=== PATIENT | female | born 1945 | race Caucasian/White ===

== ENCOUNTER 2024-07-27 17:04 | Emergency (ER) | payer MEDICARE, OTHER, SELFPAY ==
[2024-07-27] VITALS (11 sets, daily range): BP systolic 153–194; BP diastolic 87–140; BMI 21.5
[2024-07-27 17:22] LABS: % Basophils 0.6 % (0-2); % Eosinophils 3.8 % (0-6); % Immature Granulocytes 0.4 % (0-0.5); % Monocytes 9.5 % (1.7-9.3); % Neutrophils 50.7 % (42.2-75.2); Absolute Eosinophils 0.3 10^3/uL (0-0.7); Absolute Lymphocytes 2.4 10^3/uL (1.2-3.4); Absolute Monocytes 0.7 10^3/uL (0.1-0.6); Absolute Neutrophils 3.5 10^3/uL (1.4-6.5); Hematocrit 40.3 % (37.0-47.0); Mean Corp Hgb Conc. 32.3 g/dL (33.0-37.0); Mean Corpuscular Hgb 30.6 pg (27.0-31.0); Mean Corpuscular Volume 94.8 fL (81.0-99.0); Mean Platelet Volume 10.8 fL (7.4-10.4); Nucleated Red Blood Cells % 0 %; Platelet Count 239 10^3/uL (130-400); Red Blood Cell Count 4.25 10^6/uL (4.20-5.40); Red Cell Dist. Width 14.6 % (11.5-14.5); White Blood Cell Count 6.8 10^3/uL (4.8-10.8)
--- NOTE | 2024-07-27 17:23 | ED.GENMED ---
History of Present Illness
General
Chief Complaint: Chest Pain
Source: patient
Time Seen by Provider: 07/27/24 17:08
History of Present Illness
History of Present Illness:
78-year-old female brought to the emergency room by ambulance from her detention where she complained of chest pain. Currently the patient denies chest pain. She does have dementia and does not recall why she is here. Patient's daughter is
here with her the patient does not have any history of coronary artery disease. She does have a history of A-fib for which she takes Coumadin.
Past History
Past History
ED Past Medical History: Arrthythmia (afib on Coumadin), HTN, Valvular disease and Other (Dementia)
ED Past Surgical History: Cardiac (MVR) and Cholecystectomy
Social History
Tobacco: Non-smoker
Living: assisted living
Phy Exam
Physical Exam
Physical Exam:
General: Awake, Alert, Oriented X3. No acute distress. Appears stated age
Vitals: unremarkable
Head: Atraumatic
Eyes: Pupils equal, EOMI
Throat: Airway intact, no exudates
Neck: Trachea midline
Lungs: Clear and equal b/l
Heart: Regular rate, no murmurs
Abd: Soft, Nontender, No pulsatile mass
Neuro: Nonfocal
Skin: Warm, dry, no rash
Extremities: pulses equal b/l, no edema
Course
Orders/Labs/Results
Orders:
Orders
07/27/24 17:12
Electrocardiogram (*1) Urgent
Reason for Study: Chest Pain
EKG- Treatment ONCE
07/27/24 17:14
Complete Blood Count/With Diff Urgent
Comprehensive Metabolic Panel Urgent
Troponin I Urgent
07/27/24 17:19
PT/INR [Prothrombin Time] Urgent
07/27/24 19:40
Troponin I Urgent
Abnormal Lab Results
07/27/24 07/27/24
17:14 17:19
MCHC 32.3 L g/dL
(33.0-37.0)
RDW 14.6 H %
(11.5-14.5)
MPV 10.8 H fL
(7.4-10.4)
Absolute Monos (auto) 0.7 H 10^3/uL
(0.1-0.6)
Monocytes % 9.5 H %
(1.7-9.3)
PT 35.9 H Sec
(11.4-14.6)
Carbon Dioxide 32 H mmol/L
(22-30)
07/27/24 17:14
07/27/24 17:14
Vital Signs
Initial and Last Documented VS:
Initial Vital Signs
Temp Pulse Resp Pulse Ox
98.4 F 74 16 97
07/27/24 17:08 07/27/24 17:08 07/27/24 17:08 07/27/24 17:08
Last Documented Vital Signs
Temp Pulse Resp BP Pulse Ox
98.4 F 71 16 177/100 97
07/27/24 17:08 07/27/24 19:00 07/27/24 19:00 07/27/24 19:00 07/27/24 18:57
*EKG
Interpreted by ED Provider?: Yes
Comparison EKG: no changes
Heart Rate: 74
Rate: normal
Rhythm: a-fib
[place]: normal axis
Interval: normal interval
QRS Pattern: normal QRS
Ischemia: non-specific ST changes
ED Attending Note
-
Portions of this chart may have been created with voice recognition software.� Occasional wrong word or��sound alike� substitutions may have occurred due to the inherent limitations of voice recognition software.
Discharge Plan
Departure
Condition: Good
Discharge Problem:
Chest pain
Instructions: Chest Pain NON-DHP Geneticist Follow Up
Prescriptions:
No Action
acetaminophen 500 mg Tablet
500 mg PO DAILY
methimazole 5 mg Tablet
5 mg PO MOWEFR
digoxin 125 mcg (0.125 mg) Tablet
125 mcg PO DAILY
valsartan 40 mg Tablet
120 mg PO DAILY
calcium carbonate-vitamin D3 [Calcium 600 + D(3)] 600 mg-10 mcg (400 unit) Tablet
1 tab PO BID
memantine 28 mg Capsule,Sprinkle,Er 24hr
28 mg PO QPM
buspirone 5 mg Tablet
5 mg PO BID
warfarin 3 mg Tablet
3 mg PO QPM
aspirin 81 mg Tablet,Chewable
81 mg PO DAILY
meclizine 12.5 mg Tablet
12.5 mg PO Q8HPRN PRN (Reason: vertigo) 60 Days Qty: 60 0RF
carvedilol [Coreg] 6.25 mg tablet
6.25 mg PO BID Qty: 180 0RF
Referrals:
Eli Miranda DO [Family Provider] -
Interventions
Interventions:
*Risk Screen - Suicide Last Done: 07/27/24 17:08
*General Assessment Last Done: 07/27/24 17:08
*Neglect/Abuse Screening Last Done: 07/27/24 17:08
*ED- Fall Risk Assessment Last Done: 07/27/24 17:08
ED- Cardiac Assessment Last Done: 07/27/24 17:08
Discharge Date and Time
Print Language: CHILEAN
[2024-07-27 17:37] LABS: INR 3.57; PT 35.9 Sec (11.4-14.6)
[2024-07-27 17:43] LABS: ALT (SGPT) 17 U/L (0-35); AST (SGOT) 25 U/L (14-36); Albumin 4.2 g/dl (3.5-5.0); Alkaline Phosphatase 75 U/L (38-126); Blood Urea Nitrogen 12 mg/dl (7-17); Calcium 9.5 mg/dl (8.4-10.2); Carbon Dioxide 32 mmol/L (22-30); Chloride 99 mmol/L (98-107); Estimated Creatinine Clearance 68 ml/min; Glucose 97 mg/dl (70-99); Potassium 3.8 mmol/L (3.5-5.1); Sodium 138 mmol/L (135-145); Total Protein 6.8 g/dl (6.3-8.2); eGFR > 60.00
[2024-07-27 17:48] LABS: Troponin I < 0.012 ng/ml
[2024-07-27 20:14] LABS: Troponin I < 0.012 ng/ml
== END 2024-07-27 21:03 | disposition home or self-care (01) ==
LOC: EMR 17:04
PROVIDERS: EMERGENCY PHYSICIAN Emergency Medicine; FAMILY PHYSICIAN Family Medicine
DX: R07.89 Other chest pain (principal); F03.90 Unspecified dementia, unspecified severity, without behavioral disturbance, psychotic disturbance, mood disturbance, and anxiety; I10 Essential (primary) hypertension; I48.91 Unspecified atrial fibrillation; Z79.01 Long term (current) use of anticoagulants; Z90.49 Acquired absence of other specified parts of digestive tract; I38 Endocarditis, valve unspecified
CPT/HCPCS: 99283; 80053; 84484; 85025; 85610; 93005

== ENCOUNTER 2024-09-23 23:38 | Inpatient (IN) | payer MEDICARE, OTHER, SELFPAY ==
[2024-09-23 18:22] VITALS: BP 142/81
[2024-09-23 18:42] LABS: % Basophils 0.5 % (0-2); % Eosinophils 2.6 % (0-6); % Immature Granulocytes 0.4 % (0-0.5); % Monocytes 8.9 % (1.7-9.3); % Neutrophils 55.6 % (42.2-75.2); Absolute Basophils 0.1 10^3/uL (0-0.2); Absolute Eosinophils 0.3 10^3/uL (0-0.7); Absolute Lymphocytes 3.2 10^3/uL (1.2-3.4); Absolute Monocytes 0.9 10^3/uL (0.1-0.6); Absolute Neutrophils 5.5 10^3/uL (1.4-6.5); Hematocrit 32.9 % (37.0-47.0); Hemoglobin 10.8 g/dL (12.0-16.0); Mean Corp Hgb Conc. 32.8 g/dL (33.0-37.0); Mean Corpuscular Hgb 30.3 pg (27.0-31.0); Mean Corpuscular Volume 92.2 fL (81.0-99.0); Nucleated Red Blood Cells % 0 %; Platelet Count 233 10^3/uL (130-400); Red Blood Cell Count 3.57 10^6/uL (4.20-5.40); Red Cell Dist. Width 14.6 % (11.5-14.5); White Blood Cell Count 9.9 10^3/uL (4.8-10.8)
[2024-09-23 18:53] LABS: INR 4.12; PT 39.4 Sec (11.4-14.6)
[2024-09-23 18:54] LABS: APTT 54.1 Sec (23.4-35.0)
[2024-09-23 19:10] LABS: ALT (SGPT) 15 U/L (0-35); AST (SGOT) 23 U/L (14-36); Albumin 3.7 g/dl (3.5-5.0); Alkaline Phosphatase 58 U/L (38-126); Blood Urea Nitrogen 23 mg/dl (7-17); Calcium 9.2 mg/dl (8.4-10.2); Carbon Dioxide 29 mmol/L (22-30); Chloride 100 mmol/L (98-107); Glucose 98 mg/dl (70-99); Potassium 3.8 mmol/L (3.5-5.1); Sodium 136 mmol/L (135-145); Total Bilirubin 0.9 mg/dl (0.2-1.3); Total Protein 6.1 g/dl (6.3-8.2); eGFR > 60.00
[2024-09-23 22:00] VITALS: BP 152/83
[2024-09-23] MEDS: PROTONIX IV 80 MG IV (23:00)
--- NOTE | 2024-09-23 23:01 | ED.GENMED ---
History of Present Illness
General
Chief Complaint: Rectal Bleeding
Source: patient
Exam Limitations: none
Time Seen by Provider: 09/23/24 21:12
History of Present Illness
History of Present Illness:
78-year-old female on Coumadin for A-fib presents with onset of rectal bleeding today at facility. Patient has history of dementia and history is limited. She notes mild abdominal pain. There was no reported vomiting or fever. There is family
history of colon CA.
Past History
Past History
ED Past Medical History: Arrthythmia (afib on Coumadin), HTN, Valvular disease and Other (Dementia)
ED Past Surgical History: Cardiac (MVR) and Cholecystectomy
Social History
Tobacco: Non-smoker
Living: assisted living
Phy Exam
Physical Exam
Physical Exam:
General: Well-appearing female no acute respiratory distress HEENT: Normocephalic atraumatic
Heart: Regular rate and rhythm
Lungs: Clear no wheeze
Abdomen slightly tender to lower abdomen and mildly distended. No guarding or rebound
Rectal exam: No obvious hemorrhoids. Dark red stool on tip of glove heme positive
Course
Orders/Labs/Results
Orders:
Orders
09/23/24 18:25
EKG [Electrocardiogram (*1)] Urgent
Reason for Study: Other
Other Reason for Exam: gi bleed
09/23/24 18:26
EKG- Treatment ONCE
09/23/24 18:35
Type+Screen Urgent
Complete Blood Count/With Diff Urgent
Comprehensive Metabolic Panel Urgent
PTT Urgent
Prothrombin Time Urgent
09/23/24 21:19
ABO2 Urgent
BBK Wristband Number:
Associate notified that ABO2 has been ordered: [id number]
Date: 09/23/24
Time: 18:50
Straight Ruling Machine Operator ID: [id number]
09/23/24 22:14
CT Abd/pelvis W Iv Cont Urgent
Comment:
Reason For Exam: abdominal pain
09/23/24 22:48
Pantoprazole [Protonix IV] 80 mg IV NOW STA
Abnormal Lab Results
09/23/24
18:35
RBC 3.57 L 10^6/uL
(4.20-5.40)
Hgb 10.8 L g/dL
(12.0-16.0)
Hct 32.9 L %
(37.0-47.0)
MCHC 32.8 L g/dL
(33.0-37.0)
RDW 14.6 H %
(11.5-14.5)
MPV 11.0 H fL
(7.4-10.4)
Absolute Monos (auto) 0.9 H 10^3/uL
(0.1-0.6)
PT 39.4 H Sec
(11.4-14.6)
APTT 54.1 H Sec
(23.4-35.0)
BUN 23 H mg/dl
(7-17)
Total Protein 6.1 L g/dl
(6.3-8.2)
09/23/24 18:35
09/23/24 18:35
Vital Signs
Initial and Last Documented VS:
Initial Vital Signs
Temp Pulse Resp BP Pulse Ox
98.5 F 84 16 142/81 98
09/23/24 18:22 09/23/24 18:22 09/23/24 18:22 09/23/24 18:22 09/23/24 18:22
Last Documented Vital Signs
Temp Pulse Resp BP Pulse Ox
98.5 F 87 21 152/83 98
09/23/24 18:22 09/23/24 22:48 09/23/24 22:48 09/23/24 22:00 09/23/24 22:00
MDM/Problems Addressed
Differential Diagnosis Includes:
Patient had episode of red rectal bleeding at facility today she had an episode here that was dark red. Stool is dark red on exam here with heme positive. She is slightly supratherapeutic with her Coumadin at 4.1. Vitals are stable. CT without
obvious acute finding. Protonix ordered for potential upper GI bleeding. Will admit to hospital
*Critical Care Note
Total Time (30-74mins, 75-104mins- exclusive of procedures): Not Applicable
ED Attending Note
-
Portions of this chart may have been created with voice recognition software.� Occasional wrong word or��sound alike� substitutions may have occurred due to the inherent limitations of voice recognition software.
Discharge Plan
Departure
Patient Disposition: Admit
Date of Disposition: 09/23/24
Time of Disposition: 23:04
Presentation/result/management discussed w/ accepting MD/DO: Hospitalist
Discharge Problem:
GI bleed
Prescriptions:
No Action
acetaminophen 500 mg Tablet
500 mg PO DAILY
methimazole 5 mg Tablet
5 mg PO MOWEFR
digoxin 125 mcg (0.125 mg) Tablet
125 mcg PO DAILY
valsartan 40 mg Tablet
120 mg PO DAILY
calcium carbonate-vitamin D3 [Calcium 600 + D(3)] 600 mg-10 mcg (400 unit) Tablet
1 tab PO BID
memantine 28 mg Capsule,Sprinkle,Er 24hr
28 mg PO QPM
buspirone 5 mg Tablet
5 mg PO BID
warfarin 3 mg Tablet
3 mg PO QPM
aspirin 81 mg Tablet,Chewable
81 mg PO DAILY
meclizine 12.5 mg Tablet
12.5 mg PO Q8HPRN PRN (Reason: vertigo) 60 Days Qty: 60 0RF
carvedilol [Coreg] 6.25 mg tablet
6.25 mg PO BID Qty: 180 0RF
Referrals:
Eli Miranda DO [Family Provider] -
Interventions
Interventions:
*Risk Screen - Suicide Last Done: 09/23/24 18:22
*General Assessment Last Done: 09/23/24 20:59
*Neglect/Abuse Screening Last Done: 09/23/24 18:22
*ED- Fall Risk Assessment Last Done: 09/23/24 18:22
*ED COVID-19 Vaccine History Last Done: 09/23/24 20:59
LW-Lbhhir-Afggkcsvuc Assessment Last Done: 09/23/24 22:05
ED- Cardiac Assessment Last Done: 09/23/24 21:00
ED- Pulmonary Assessment Last Done: 09/23/24 21:00
Discharge Date and Time
Print Language: YORUBA
--- NOTE | 2024-09-23 23:51 | HPS.HSE ---
Family Physician
-
Family Physician: Eli Miranda
Chief Complaint
-
BRBPR
History of Present Illness
Patient is a 78y F with PMH significant for dementia, hypertension and A-Fib on Coumadin who presents to ED complaining of BRBPR. History obtained from patient and her daughter at the bedside. Patient noted blood in the stool earlier today and
notified staff at the personal care facility. She was transported to the ED for further evaluation. She had a maroon-colored BM here in the ED and stool tested heme positive. She complains of abdominal distention / bloating and mild lower
abdominal pain. No N/V. No fevers / chills.
Patient has known history of diverticular disease. No prior history of significant GI bleeding episodes.
She is on Coumadin for A-Fib and did take her dose this evening prior to presentation.
Medical History
Past Medical History
Past Medical History: Reports Other
Additional Past Medical History:
Paroxysmal Atrial fibrillation
Essential Hypertension
Anxiety
Dementia
Hyperthyroidism
Past Surgical History: Reports Other
Additional Past Surgical History:
Bioprosthetic Mitral Valve Replacement
Cholecystectomy
Social History
Tobacco: Non-smoker
Alcohol: None
Living: Assisted Living
Family History
Family History: Other (Family history of colon cancer.)
Allergies / Home Medications
Allergies reflects when Allergies were last updated in [facility].
Home Medications with original date entered in [facility]
Allergy/Medication List:
Allergies
Allergy/AdvReac Type Severity Reaction Status Date / Time
amoxicillin Allergy Nausea / Verified 09/23/24 18:21
Vomiting
Androgenic Anabolic Steroid Allergy Unknown Verified 09/23/24 18:21
Home Medications
acetaminophen 500 mg tablet 500 mg PO BID Pain 01/23/22
calcium 600 mg (as carbonate)-vitamin D3 10 mcg (400 unit) tablet (Calcium 600 + D(3)) 1 tab PO BID Supplement 01/23/22
digoxin 125 mcg (0.125 mg) tablet 125 mcg PO DAILY Arrhythmia 01/23/22
methimazole 5 mg tablet 5 mg PO MOWEFR Thyroid 01/23/22
aspirin 81 mg chewable tablet 81 mg PO DAILY Blood clot prevention/tx 09/15/22
buspirone 5 mg tablet 10 mg PO TID Mental Health/Anxiety 09/15/22
carvedilol 6.25 mg tablet (Coreg) 6.25 mg PO BID #180 tabs 09/18/22
meclizine 12.5 mg tablet 12.5 mg PO Q8HPRN PRN vertigo 60 days #60 tabs 09/18/22
valsartan 160 mg tablet 160 mg PO DAILY 09/23/24
valsartan 80 mg tablet 80 mg PO DAILY 09/23/24
warfarin 4 mg tablet 4 mg PO DAILY@1700 09/23/24
Review of Systems
-
History Source: Patient and Family
A 12 point ROS was completed and negative except as noted: Yes
Constitutional: Denies Fever or Chills
Respiratory: Denies Cough or Trouble Breathing
Cardiac: Denies Chest Pain or Palpitations
Abdomen/GI: Reports Abdominal Pain and Bloody Stools; Denies Nausea, Vomiting or Diarrhea
: Denies Dysuria or Frequency
Musculoskeletal: Denies Joint Pain or Edema
Neurological: Denies Dizzy or Headache
Psych: Reports Dementia; Denies Depression or Anxiety
Physical Exam
Vital Signs
Vital Signs
Temp Pulse Resp BP Pulse Ox
98.5 F 87 21 152/83 98
09/23/24 18:22 09/23/24 22:48 09/23/24 22:48 09/23/24 22:00 09/23/24 22:00
Physical Exam
General: Other (78y F in no acute distress.)
HEENT: Moist mucous membranes and PERRLA
Respiratory: Clear; No Wheezes, Rales or Rhonchi
Cardiac: S1/S2 and Irregular Rhythm; No Murmur
GI: Other (Softly distended. pos BS. Lower abdominal tenderness without rebound / guarding.)
Musculoskeletal: No Clubbing, No Cyanosis and No Edema
Neuro: Awake and Alert; No Oriented
Laboratory Results
-
09/23/24 18:35
09/23/24 18:35
Laboratory Results
PT 39.4 Sec (11.4-14.6) H 09/23/24 18:35
INR 4.12 09/23/24 18:35
APTT 54.1 Sec (23.4-35.0) H 09/23/24 18:35
Total Bilirubin 0.9 mg/dl (0.2-1.3) 09/23/24 18:35
AST 23 U/L (14-36) 09/23/24 18:35
ALT 15 U/L (0-35) 09/23/24 18:35
Alkaline Phosphatase 58 U/L (38-126) 09/23/24 18:35
Impression/Plan
-
A/P: Patient is a 78y F with PMH significant for dementia, hypertension and A-Fib on Coumadin who presents to ED for evaluation of BRBPR.
Lower GI Bleeding
Acute Blood Loss Anemia secondary to the above
Coumadin Coagulopathy
- Admit for further evaluation and treatment.
- INR today is 4.12 and patient did have her dose of Coumadin this evening.
- Hgb = 10.8 compared to baseline of 12-13.
- Follow H&H and transfuse if needed (consent on chart).
- CT scan done in the ED today shows diverticular disease - no other significant bowel abnormality.
- GI evaluation for additional recommendations.
- Follow for any recurrent BRBPR, changes in BP, etc.
Paroxysmal Atrial Fibrillation
- Stable. Continue digoxin and carvedilol for rate control.
- Hold Eliquis acutely given active bleeding.
Benign Hypertension
- Stable. Continue valsartan at decreased dose with holding parameters.
- Monitor for any development of hypotension, etc secondary to bleeding / volume losses.
Hyperthyroidism
- Continue methimazole.
Senile Dementia
- Stable. Baseline dementia according to family.
- Follow for any agitation / delirium during acute stay.
DVT Prophylaxis: SCDs
Code Status: Full
[2024-09-24 02:15] VITALS: BP 170/108; BMI 22.7
[2024-09-24 02:20] LABS: Hematocrit 33.2 % (37.0-47.0); Hemoglobin 11.1 g/dL (12.0-16.0)
[2024-09-24 03:04] VITALS: BP 145/78
[2024-09-24 07:00] VITALS: BP 163/93
[2024-09-24] MEDS: BUSPAR 10 MG PO ×3 (09:11→20:35)
[2024-09-24] MEDS: COREG 6.25 MG PO ×2 (09:12→20:36)
[2024-09-24] MEDS: NSS (PRESERVATIVE FREE) 10 ML IV (09:13)
[2024-09-24] MEDS: LANOXIN 125 MCG PO (09:13)
[2024-09-24] MEDS: DIOVAN 160 MG PO (09:13)
[2024-09-24] MEDS: PROTONIX IV 40 MG IV (09:14)
[2024-09-24] MEDS: TAPAZOLE PO (09:14)
[2024-09-24] MEDS: TYLENOL 500 MG PO ×2 (09:15→20:36)
--- NOTE | 2024-09-24 09:31 | W.PN.HOSP.TC ---
Today's Communication/Plan
-
see bold
Assessment / Plan
Assessment / Plan
78y F with PMH significant for dementia, hypertension and A-Fib on Coumadin who presents to ED for evaluation of BRBPR.
Does not offer any acute complaints.
Gen: NAD, Awake and alert
Eyes: EOMI, PERRLA, no scleral icterus.
Neck: supple.
CV: RRR, +S1/S2, no m/r/g.
Resp: CTAB, no rales, wheezes, or rhonchi.
Abd: +BS, soft, NT, ND
Skin: No rashes.
Neuro: CN 2-12 intact, non-focal.
Psych: Normal mood and affect.
CT A/P: Evaluation for active colonic bleeding markedly limited without angiographic technique. Evaluation of the intestinal tract markedly limited without oral contrast and with relative paucity of intra-abdominal/pelvic fat with diverticulosis of
descending and redundant sigmoid colon. No intestinal obstruction or free air. Suspected 3 cm cystic lesion of the body/tail of the pancreas, additional approximate 1.2 cm pancreatic body cystic lesion and adjacent subcentimeter solid pancreatic
body lesion versus peripancreatic lymph node. Cystic lesions could represent PNET lesions. OTHER MALIGNANCY CANNOT BE EXCLUDED. RECOMMEND elective MRI for more complete evaluation if not recently obtained at outside facility. Prior cholecystectomy.
Cardiomegaly, heart incompletely included on this study.
Acute Blood Loss Anemia due to acute LGIB:
-exacerbated by coumadin coagulopathy
-trend Hb/INR (AM labs pending)
-c/s GI
-NPO
-start NS @ 80cc/hr
Pancreatic lesions:
-check MRI abd w/contrast
Other problems:
Paroxysmal Atrial Fibrillation: cont Dig/Coreg. Coumadin on hold with GIB.
Essential Hypertension: cont Coreg/Valsartan
Hyperthyroidism: cont methimazole
Alzheimer's Dementia
FULL/SCDs
Anticipated Discharge: 24 - 48 hours
Subjective/Interval History
-
Date of Service: September 24, 2024
Objective Data
-
Labs:
Laboratory Results
09/24/24 09/24/24 09/24/24
02:12 06:00 09:37
WBC Pending
Hgb 11.1 L Pending Pending
Hct 33.2 L Pending Pending
Plt Count Pending
PT Pending
INR Pending
Sodium Pending
Potassium Pending
Chloride Pending
Carbon Dioxide Pending
BUN Pending
Creatinine Pending
Glucose Pending
Calcium Pending
09/24/24
17:37
WBC
Hgb Pending
Hct Pending
Plt Count
PT
INR
Sodium
Potassium
Chloride
Carbon Dioxide
BUN
Creatinine
Glucose
Calcium
Vital Signs:
Vital Signs
Temp Pulse Resp BP Pulse Ox
98.2 F 84 14 145/78 98
09/24/24 03:04 09/24/24 09:13 09/24/24 03:04 09/24/24 03:04 09/24/24 03:04
[2024-09-24 10:50] LABS: Hematocrit 27.6 % (37.0-47.0); Hemoglobin 9.3 g/dL (12.0-16.0); Mean Corp Hgb Conc. 33.7 g/dL (33.0-37.0); Mean Corpuscular Hgb 30.2 pg (27.0-31.0); Mean Corpuscular Volume 89.6 fL (81.0-99.0); Mean Platelet Volume 11.1 fL (7.4-10.4); Platelet Count 199 10^3/uL (130-400); Red Blood Cell Count 3.08 10^6/uL (4.20-5.40); Red Cell Dist. Width 14.6 % (11.5-14.5); White Blood Cell Count 7.9 10^3/uL (4.8-10.8)
[2024-09-24 11:07] LABS: PT 42.2 Sec (11.4-14.6)
[2024-09-24] MEDS: NSS 1000 IV ×2 (11:15→23:21)
[2024-09-24 11:25] LABS: Blood Urea Nitrogen 20 mg/dl (7-17); Calcium 8.7 mg/dl (8.4-10.2); Carbon Dioxide 29 mmol/L (22-30); Chloride 105 mmol/L (98-107); Estimated Creatinine Clearance 62 ml/min; Glucose 96 mg/dl (70-99); Potassium 3.7 mmol/L (3.5-5.1); Sodium 140 mmol/L (135-145); eGFR > 60.00
--- NOTE | 2024-09-24 12:09 | CON.GI ---
Addendum entered and electronically signed by Rosa Whitlock DO 09/24/24 16:44:
Patient seen and examined independently of [facility]. I agree with her note with my additions below
Aida Em is a 78-year-old female with history of atrial fibrillation and a mitral valve ring on warfarin with a mechanical ring with a supratherapeutic INR of 4.5 who comes in with painless hematochezia. She is a very poor historian and is
pleasantly demented and somewhat scared to be here.
Apparently had a large episode of maroon stool at home and has had 2 further episodes here in the hospital. Patient has a normal baseline hemoglobin at 13 prior to coming in and most recent hemoglobin at 1030 was 9.3.
Her last colonoscopy was outside of [place] roughly 5 years ago per her daughter and has had small polyps removed in the past and an episode of diverticulitis years ago.
Most recent vital signs are stable. No tenderness on exam. Patient is pale.
# Hematochezia -painless and currently hemodynamically stable -highly likely diverticular bleeding
Supratherapeutic INR on warfarin with goal of 2.5-3.5 with a mechanical ring
Hospitalist is helping determine if we can reverse
Patient had a CT scan but not an angiogram so this is very limited and cannot determine if there is any active bleeding
Rechecking hemoglobin now to determine if she needs a transfusion
Placed on telemetry, low threshold for IMU
Discussed with cross coverage
Bedrest
Discussed with her daughter Bib Gayle who is an RN in the [employer]
# Pancreatic cyst -I canceled the MRI in the setting of active hematochezia
I discussed with the daughter currently we will hold off on any further workup in the setting of her significant dementia and active bleeding
Potential MRI later and can be done as outpatient
Original Note:
Consultation
-
Date/Time Consultation Requested: 09/24/24 0177
Date/Time Consultation Performed: 09/24/24 1150
Requesting Provider: Dr Foreman
Performing Provider: Dr Whitlock / Wendi Alvarez PA-C
Reason for Consultation: rectal bleeding
Medical History
Chief Complaint / HPI
Chief Complaint: rectal bleeding
History of Present Illness:
This is a 78 year old female with a past medical history of atrial fibrillation (on Coumadin), HTN and dementia, admitted for rectal bleeding which occurred yesterday at the assisted living facility where she resides. Patient is somewhat of a poor
historian due to dementia and unable to reach patient's daughter by phone despite multiple attempts. Per ER records, she had a maroon-colored bowel movement while in the ER and was complaining of bloating and mild lower abdominal discomfort. She has
had no associated fever, chills, nausea, vomiting or diarrhea. Unknown if she ever had a colonoscopy. CT scan of the abdomen/pelvis was done without oral contrast (and not CT angriogram) so limited evaluation for active bleeding, but does show
marked diverticulosis of the descending and redundant sigmoid colon. Also noted, incidentally, are pancreatic lesions described as a 3cm cystic lesion in the body/tail with questionable thin internal septations, as well as a 1.2cm cystic lesion of
the pancreatic body with adjacent subcentimeter solid lesion vs peripancreatic lymph node. Labs upon arrival in the ER with Hgb of 10.8, 9.3 today, with normocytic indices. PT 42.2, INR 4.5. BUN 20, creatinine 0.6. Last dose of Coumadin, 09/23/24 in
the evening.
Past Medical History
Past Medical History: Other (atrial fibrillation (on Coumadin), HTN and dementia)
Past Surgical History: Cholecystectomy and Other (mitral valve replacement)
Social History
Tobacco: Non-Smoker
Alcohol: None
Living: Assisted Living
Family History
Family History: Other (per medical record, +family history of colon cancer)
Allergies / Home Medications
Allergy/AdvReac Type Severity Reaction Status Date / Time
amoxicillin Allergy Nausea / Verified 09/23/24 18:21
Vomiting
Androgenic Anabolic Steroid Allergy Unknown Verified 09/23/24 18:21
�Medication �Instructions �Recorded
acetaminophen 500 mg tablet 500 mg PO BID Pain 01/23/22
calcium 600 mg (as 1 tab PO BID Supplement 01/23/22
carbonate)-vitamin D3 10 mcg (400
unit) tablet (Calcium 600 + D(3))
digoxin 125 mcg (0.125 mg) tablet 125 mcg PO DAILY Arrhythmia 01/23/22
methimazole 5 mg tablet 5 mg PO MOWEFR Thyroid 01/23/22
aspirin 81 mg chewable tablet 81 mg PO DAILY Blood clot 09/15/22
prevention/tx
buspirone 5 mg tablet 10 mg PO TID Mental Health/Anxiety 09/15/22
carvedilol 6.25 mg tablet (Coreg) 6.25 mg PO BID #180 tabs 09/18/22
meclizine 12.5 mg tablet 12.5 mg PO Q8HPRN PRN vertigo 60 09/18/22
days #60 tabs
valsartan 160 mg tablet 160 mg PO DAILY 09/23/24
valsartan 80 mg tablet 80 mg PO DAILY 09/23/24
warfarin 4 mg tablet 4 mg PO DAILY@1700 09/23/24
Review of Systems
-
Unable to obtain full review of systems at this time due to: Dementia
History Source: Patient and Other (medical record)
Vital Signs
Temp Pulse Resp BP Pulse Ox
97.7 F 84 20 163/93 98
09/24/24 07:00 09/24/24 09:13 09/24/24 07:00 09/24/24 07:00 09/24/24 07:00
Physical Exam
Exam
General: Well Developed, Well Nourished and No Apparent Distress
Respiratory: Clear
Cardiac: Regular Rhythm
GI: Soft, Non Tender, Non Distended (+mild distension) and Normal Bowel Sounds
Rectal: Other (ER rectal exam with dark red stool, heme positive. No hemorrhoids noted.)
Skin: Warm and Dry
Neuro: Awake and Oriented (oriented X1 (person))
Psych: Calm and Other (pleasant)
Results
WBC 7.9 10^3/uL (4.8-10.8) 09/24/24 10:34
Hgb 9.3 g/dL (12.0-16.0) L 09/24/24 10:34
Hgb Cancelled 09/24/24 10:34
Hct 27.6 % (37.0-47.0) L 09/24/24 10:34
Hct Cancelled 09/24/24 10:34
MCV 89.6 fL (81.0-99.0) 09/24/24 10:34
Plt Count 199 10^3/uL (130-400) 09/24/24 10:34
Absolute Neuts (auto) 5.5 10^3/uL (1.4-6.5) 09/23/24 18:35
PT 42.2 Sec (11.4-14.6) H 09/24/24 10:34
INR 4.50 09/24/24 10:34
APTT 54.1 Sec (23.4-35.0) H 09/23/24 18:35
Sodium 140 mmol/L (135-145) 09/24/24 10:34
Potassium 3.7 mmol/L (3.5-5.1) 09/24/24 10:34
Chloride 105 mmol/L (98-107) 09/24/24 10:34
Carbon Dioxide 29 mmol/L (22-30) 09/24/24 10:34
BUN 20 mg/dl (7-17) H 09/24/24 10:34
Creatinine 0.6 mg/dL (0.6-1.0) 09/24/24 10:34
Calcium 8.7 mg/dl (8.4-10.2) 09/24/24 10:34
Total Bilirubin 0.9 mg/dl (0.2-1.3) 09/23/24 18:35
AST 23 U/L (14-36) 09/23/24 18:35
ALT 15 U/L (0-35) 09/23/24 18:35
Alkaline Phosphatase 58 U/L (38-126) 09/23/24 18:35
Diagnostic Image Results:
CT Abdomen/Pelvis w/ IV contrast (only): 09/23/24
Evaluation for active colonic bleeding markedly limited without angiographic technique.
Evaluation of the intestinal tract markedly limited without oral contrast and with relative paucity of intra-abdominal/pelvic fat with diverticulosis of descending and redundant sigmoid colon. No intestinal obstruction or free air.
Suspected 3 cm cystic lesion of the body/tail of the pancreas, additional approximate 1.2 cm pancreatic body cystic lesion and adjacent subcentimeter solid pancreatic body lesion versus peripancreatic lymph node. Cystic lesions could represent PNET
lesions. OTHER MALIGNANCY CANNOT BE EXCLUDED. RECOMMEND elective MRI for more complete evaluation if not recently obtained at outside facility.
Prior cholecystectomy.
Cardiomegaly, heart incompletely included on this study.
Prior GI Procedures:
EGD: unknown
Colonoscopy: unknown
Assessment / Plan
-
78 year old female with a past medical history of atrial fibrillation (on Coumadin), HTN and dementia, admitted for rectal bleeding since yesterday and she did have passage of maroon-colored stool in the ER. CT shows marked diverticulosis of the
descending and redundant sigmoid colon, although limited study as CTA was not performed. Incidental pancreatic cytic lesions also noted. Labs show Hgb of 9.3 today, with normocytic indices. PT 42.2, INR 4.5. BUN 20, creatinine 0.6.
IMPRESSION / PLAN:
Lower GI Bleeding, suspect diverticular, on anticoagulation (supratherapeutic)
- continue to trend Hgb
- transfuse if Hgb falls below 7
- Coumadin has been held (last dose 09/23/24 in the evening)
- monitor for any recurrence of rectal bleeding or further drop in Hgb -- consider CTA vs colonoscopy if this occurs
Pancreatic lesions noted on CT
- MRI/MRCP to further evaluate the pancreatic cystic lesions; has already been ordered, await results
- further recommendations to follow pending results
Other medical problems managed as per hospitalist. GI will follow.
-
-
Thank you for consultation and allowing me to participate in the patient's care. Please call the chronic condition nurse GI physician during the after hours with any questions or concerns.
[2024-09-24 12:48] VITALS: BMI 22.7
--- NOTE | 2024-09-24 14:19 | CM ---
supply manager reviewed patient's chart and met with patient (patient with dementia) and spoke with patient's daughter, Bib by phone, patient resides at [facility], patient requires assist with adl's and does not use any
dme with ambulation. patient is current with [facility] and housing case manager will send referral to resume services with [facility]
PCP: Eli Miranda
Pharmacy: [facility]
Plan; Back to [facility]
[phone]
[2024-09-24 15:00] VITALS: BP 144/76
--- NOTE | 2024-09-24 17:11 | W.PN.UPDATE ---
Update Note
Progress Note Update
Patient had large bloody bowel movement.
Vitals are stable.
Seen and examined at bedside, patient has baseline dementia but denies any symptoms.
Discussed with GI.
Most recent INR 4.5.
Repeat H&H came back 02/18
If hemoglobin dropped to consider coumadin reverse
Patient has mitral ring placed on 01/2015
--- NOTE | 2024-09-24 19:34 | PTCARENOTE ---
Pt had a red gelatinous stool, small amount. Next shift aware to notify Dr. Whitlock if having significant bloody stools. HH due at midnight.
[2024-09-24 19:47] VITALS: BP 117/66
[2024-09-24 23:26] VITALS: BP 125/72
[2024-09-25] VITALS (8 sets, daily range): BP systolic 115–165; BP diastolic 64–95
[2024-09-25 00:04] LABS: Hematocrit 21.4 % (37.0-47.0); Hemoglobin 7.2 g/dL (12.0-16.0)
--- NOTE | 2024-09-25 02:26 | W.PN.UPDATE ---
Update Note
Progress Note Update
Midnight HH dropped from 9s to 7.2. Pt remains hemodynamically stable. Will order one unit PRBC to prevent further drop in HH.
--- NOTE | 2024-09-25 04:05 | TRANSFER ---
1 Unit PRBC's infused without difficulty. VSS. Pt tolerated well
[2024-09-25 08:02] LABS: INR 3.56; PT 35.3 Sec (11.4-14.6)
[2024-09-25] MEDS: BUSPAR 10 MG PO ×3 (08:32→21:43)
[2024-09-25] MEDS: COREG 6.25 MG PO ×2 (08:32→20:11)
[2024-09-25] MEDS: DIOVAN 160 MG PO (08:32)
[2024-09-25] MEDS: LANOXIN 125 MCG PO (08:32)
[2024-09-25] MEDS: TYLENOL 500 MG PO ×2 (08:33→20:12)
[2024-09-25] MEDS: PROTONIX IV 40 MG IV (08:33)
[2024-09-25] MEDS: NSS (PRESERVATIVE FREE) 10 ML IV (08:33)
[2024-09-25 09:14] LABS: Hematocrit 29.5 % (37.0-47.0); Hemoglobin 10.1 g/dL (12.0-16.0); Mean Corp Hgb Conc. 34.2 g/dL (33.0-37.0); Mean Corpuscular Hgb 30.7 pg (27.0-31.0); Mean Corpuscular Volume 89.7 fL (81.0-99.0); Mean Platelet Volume 11.3 fL (7.4-10.4); Platelet Count 178 10^3/uL (130-400); Red Blood Cell Count 3.29 10^6/uL (4.20-5.40); Red Cell Dist. Width 15.9 % (11.5-14.5); White Blood Cell Count 7.3 10^3/uL (4.8-10.8)
[2024-09-25] MEDS: MEPHYTON 2.5 MG PO (10:43)
--- NOTE | 2024-09-25 11:11 | W.PN.HOSP.TC ---
Today's Communication/Plan
-
see plan
Assessment / Plan
Assessment / Plan
78y F with PMH significant for dementia, hypertension and A-Fib on Coumadin who presents to ED for evaluation of BRBPR.
Pt does not offer any acute complaints.
Gen: NAD, Awake and alert
Eyes: EOMI, PERRLA, no scleral icterus.
Neck: supple.
CV: remains RRR, +S1/S2, no m/r/g.
Resp: remains CTAB, no rales, wheezes, or rhonchi.
Abd: remains +BS, soft, NT, ND
Skin: No rashes.
Neuro: CN 2-12 intact, non-focal.
Psych: Normal mood and affect.
CT A/P: Evaluation for active colonic bleeding markedly limited without angiographic technique. Evaluation of the intestinal tract markedly limited without oral contrast and with relative paucity of intra-abdominal/pelvic fat with diverticulosis of
descending and redundant sigmoid colon. No intestinal obstruction or free air. Suspected 3 cm cystic lesion of the body/tail of the pancreas, additional approximate 1.2 cm pancreatic body cystic lesion and adjacent subcentimeter solid pancreatic
body lesion versus peripancreatic lymph node. Cystic lesions could represent PNET lesions. OTHER MALIGNANCY CANNOT BE EXCLUDED. RECOMMEND elective MRI for more complete evaluation if not recently obtained at outside facility. Prior cholecystectomy.
Cardiomegaly, heart incompletely included on this study.
Acute Blood Loss Anemia due to acute LGIB, likely diverticular:
-exacerbated by coumadin coagulopathy
-s/p 2.5mg Vit K
-s/p 1U pRBCs
-GI following, case discussed with Dr. Whitlock
-trend Hb/INR
-cont IVFs
Pancreatic lesions:
-MRI abd w/contrast ordered by myself, cancelled by Dr. Whitlock. As per my discussion with the pt's daughter this AM she will want MRI done to investigate pancreatic lesions.
Other problems:
Paroxysmal Atrial Fibrillation: cont Dig/Coreg. Coumadin on hold with GIB.
Essential Hypertension: cont Coreg/Valsartan
Hyperthyroidism: cont methimazole
Alzheimer's Dementia
FULL/SCDs
Total time spent on today's encounter was 50 minutes which included time spent in counseling the patient/family regarding diagnosis and treatment plan as listed above, goals of care, and symptom management. Case was discussed with nursing staff,
specialists, and care coordinators/case management. All labs and imaging personally reviewed by me. Remainder the time spent in detailed review of previous records, lab data, imaging, and other medical provider documentation.
Anticipated Discharge: > 48 hours
Subjective/Interval History
-
Date of Service: September 25, 2024
One burgundy stool this AM.
Objective Data
-
Labs:
Laboratory Results
09/24/24 09/25/24 09/25/24
23:54 07:37 07:37
WBC 7.3
Hgb 7.2 L 10.1 L D Cancelled
Hct 21.4 L 29.5 L
Plt Count
PT
INR
09/25/24 09/25/24 09/25/24
07:37 15:55 23:55
WBC
Hgb Pending Pending
Hct Cancelled Pending Pending
Plt Count 178
PT 35.3 H
INR 3.56
Vital Signs:
Vital Signs
Temp Pulse Resp BP Pulse Ox
97.7 F 74 18 148/84 98
09/25/24 07:00 09/25/24 08:32 09/25/24 07:00 09/25/24 07:00 09/25/24 08:45
I&O
09/24/24 09/25/24 09/26/24
06:59 06:59 06:59
Intake Total 1200 / 1200
Balance 1200 / 1200
--- NOTE | 2024-09-25 11:13 | W.PN.GI.CBS2 ---
Today's Communication / Plan
-
-- monitor stool outpt, 2.5mg of vit K, start full liquids, continue tele and bedrest for now
- discussed with daughter and Dr. Rahman and STEVE Espinal
Assessment / Plan
-
Aida Em is a 78-year-old female with history of atrial fibrillation and a mitral valve ring on warfarin with a supratherapeutic INR of 4.5 who comes in with painless hematochezia with drop in hgb from normal to 7.2, now 1U on 09/25/24 for suspected
diverticular bleed who has been hemodynamically stable.
Her last colonoscopy was outside of [place] roughly 5 years ago per her daughter and has had small polyps removed in the past and an episode of diverticulitis years ago.
# Hematochezia -painless and currently hemodynamically stable -highly likely diverticular bleeding
Supratherapeutic INR on warfarin with a mechanical ring -discussed with Dr. Gould. Okay for reversal. Giving 2.5 mg of vitamin K today
Patient had a CT scan but not an angiogram so this is very limited and cannot determine if there is any active bleeding
received 1U supervisor adult education 09/25/24 and repeat hgb overcorrected to 10 (so not sure which lab is incorrect). getting q8 hgb checks
Placed on telemetry, low threshold for IMU
Bedrest until bleeding stops
Discussed with her daughter Bib Gayle who is an RN in the [employer]
# Pancreatic cyst -I canceled the MRI in the setting of active hematochezia
I discussed with the daughter currently we will hold off on any further workup in the setting of her significant dementia and active bleeding
Potential MRI later and can be done as outpatient
- discussed with Dr. Rahman - he did order the test, but after discussion with daughter and active bleeding, we are holding off
Subjective
Subjective
Date of Service: September 25, 2024
Patient's hemoglobin last night dropped to 7.2 got 1 unit and overcorrected to 10. Patient is hemodynamically stable. She is demented and not clear why she is here but alert and awake and in no acute distress
Objective
Data Reviewed
Laboratory Data:
Laboratory Results
09/24/24 10:34
Laboratory Results
PT 35.3 Sec (11.4-14.6) H 09/25/24 07:37
INR 3.56 09/25/24 07:37
APTT 54.1 Sec (23.4-35.0) H 09/23/24 18:35
Total Bilirubin 0.9 mg/dl (0.2-1.3) 09/23/24 18:35
AST 23 U/L (14-36) 09/23/24 18:35
ALT 15 U/L (0-35) 09/23/24 18:35
Alkaline Phosphatase 58 U/L (38-126) 09/23/24 18:35
Vital Signs and I&O:
Vital Signs
Temp Pulse Resp BP Pulse Ox
97.7 F 74 18 148/84 98
09/25/24 07:00 09/25/24 08:32 09/25/24 07:00 09/25/24 07:00 09/25/24 08:45
I&O
09/24/24 09/25/24 09/26/24
06:59 06:59 06:59
Intake Total 1200 / 1200
Balance 1200 / 1200
Physical Exam
Physical Exam
HEENT: Anicteric
GI: Soft, Non Distended and Non Tender
Extremities: No Edema
[2024-09-25] MEDS: NSS 1000 IV (13:48)
--- NOTE | 2024-09-25 15:06 | CHAP ---
Aida Em was confused and anxious during our visit. She appreciated having someone to talk to. Emotional and spiritual support provided.
[2024-09-25 16:55] LABS: Hematocrit 27.2 % (37.0-47.0); Hemoglobin 9.3 g/dL (12.0-16.0)
[2024-09-26 00:35] LABS: Hematocrit 32.1 % (37.0-47.0); Hemoglobin 10.7 g/dL (12.0-16.0)
[2024-09-26] MEDS: NSS 1000 IV ×2 (01:31→11:31)
[2024-09-26 03:40] VITALS: BP 151/82
[2024-09-26 07:00] VITALS: BP 177/105
[2024-09-26 07:30] LABS: INR 1.43; PT 17.7 Sec (11.4-14.6)
[2024-09-26 08:04] LABS: Hematocrit 28.9 % (37.0-47.0); Hemoglobin 9.7 g/dL (12.0-16.0); Mean Corp Hgb Conc. 33.6 g/dL (33.0-37.0); Mean Corpuscular Hgb 30.1 pg (27.0-31.0); Mean Corpuscular Volume 89.8 fL (81.0-99.0); Mean Platelet Volume 11.3 fL (7.4-10.4); Platelet Count 192 10^3/uL (130-400); Red Blood Cell Count 3.22 10^6/uL (4.20-5.40); Red Cell Dist. Width 16.1 % (11.5-14.5)
--- NOTE | 2024-09-26 08:36 | W.PN.HOSP.TC ---
Today's Communication/Plan
-
see plan
Assessment / Plan
Assessment / Plan
78y F with PMH significant for dementia, hypertension and A-Fib on Coumadin who presents to ED for evaluation of BRBPR.
Pt does not offer any acute complaints.
Gen: NAD, Awake and alert
Eyes: EOMI, PERRLA, no scleral icterus.
Neck: supple.
CV: irreg/irreg, +S1/S2, no m/r/g.
Resp: CTAB anteriorly, no rales, wheezes, or rhonchi.
Abd: continues to remain +BS, soft, NT, ND
Skin: No rashes.
Neuro: CN 2-12 intact, non-focal.
Psych: slightly anxious
CT A/P: Evaluation for active colonic bleeding markedly limited without angiographic technique. Evaluation of the intestinal tract markedly limited without oral contrast and with relative paucity of intra-abdominal/pelvic fat with diverticulosis of
descending and redundant sigmoid colon. No intestinal obstruction or free air. Suspected 3 cm cystic lesion of the body/tail of the pancreas, additional approximate 1.2 cm pancreatic body cystic lesion and adjacent subcentimeter solid pancreatic
body lesion versus peripancreatic lymph node. Cystic lesions could represent PNET lesions. OTHER MALIGNANCY CANNOT BE EXCLUDED. RECOMMEND elective MRI for more complete evaluation if not recently obtained at outside facility. Prior cholecystectomy.
Cardiomegaly, heart incompletely included on this study.
Acute Blood Loss Anemia due to acute LGIB, likely diverticular:
-exacerbated by coumadin coagulopathy, now resolved s/p 2.5mg Vit K (INR 1.43)
-s/p 1U pRBCs
-GI following
-trend Hb/INR
-cont IVFs
-advanced to full liquids
Pancreatic lesions:
-MRI abd w/contrast ordered by myself, cancelled by Dr. Whitlock. As per my discussion with the pt's daughter 09/25/24 she will want MRI done to investigate pancreatic lesions prior to discharge.
-currently anxious and doubt pt will remain still for MRI today
Other problems:
Paroxysmal Atrial Fibrillation: cont Dig/Coreg. Coumadin on hold with GIB.
Essential Hypertension: cont Coreg/Valsartan
Hyperthyroidism: cont methimazole
Alzheimer's Dementia
FULL/SCDs
Anticipated Discharge: Within 24 hours
Subjective/Interval History
-
Date of Service: September 26, 2024
Pt anxious and confused. As per RN no melena or hematochezia O/N.
Objective Data
-
Labs:
Laboratory Results
09/26/24 09/26/24
00:05 07:01
WBC 7.0
Hgb 10.7 L 9.7 L
Hct 32.1 L 28.9 L
Plt Count 192
PT 17.7 H
INR 1.43 D
Vital Signs:
Vital Signs
Temp Pulse Resp BP Pulse Ox
97.7 F 65 18 151/82 97
09/26/24 03:40 09/26/24 03:40 09/26/24 03:40 09/26/24 03:40 09/26/24 03:40
I&O
09/25/24 09/26/24 09/27/24
06:59 06:59 06:59
Intake Total 1200 / 1200 2480 / 2480
Output Total 200 / 200
Balance 1200 / 1200 2280 / 2280
[2024-09-26] MEDS: BUSPAR 10 MG PO ×3 (08:43→21:02)
[2024-09-26] MEDS: DIOVAN 160 MG PO (08:43)
[2024-09-26] MEDS: LANOXIN 125 MCG PO (08:43)
[2024-09-26] MEDS: TAPAZOLE 5 MG PO (08:43)
[2024-09-26] MEDS: COREG 6.25 MG PO ×2 (08:43→21:02)
[2024-09-26] MEDS: PROTONIX IV 40 MG IV (08:44)
[2024-09-26] MEDS: NSS (PRESERVATIVE FREE) 10 ML IV (08:44)
[2024-09-26] MEDS: TYLENOL 500 MG PO ×2 (08:46→21:02)
[2024-09-26 11:00] VITALS: BP 144/71
--- NOTE | 2024-09-26 14:03 | W.PN.GI.CBS2 ---
Today's Communication / Plan
-
- stop IVF
- MRI, after MR, low residue diet here then normal diet outpatient
- need a plan for her A/C
- discussed with daughter
Assessment / Plan
-
Aida Em is a 78-year-old female with history of atrial fibrillation and a mitral valve ring on warfarin with a supratherapeutic INR of 4.5 who comes in with painless hematochezia with drop in hgb from normal to 7.2, now 1U on 09/25/24 for suspected
diverticular bleed who has been hemodynamically stable.
Her last colonoscopy was outside of [place] roughly 5 years ago per her daughter and has had small polyps removed in the past and an episode of diverticulitis years ago.
# Hematochezia -painless and currently hemodynamically stable -highly likely diverticular bleeding
-- bleeding has stopped - had a brown BM today, hgb stable
Supratherapeutic INR on warfarin with a mechanical ring -discussed with Dr. Gould. Gave 2.5 mg of vitamin K
Patient had a CT scan but not an angiogram so this is very limited and cannot determine if there is any active bleeding
received 1U universal grinder set up operator 09/25/24 and repeat hgb overcorrected to 10 (so not sure which lab is incorrect).
ok to stop IVF - emily since she is demented and trying to walk away - fall risk
Discussed with her daughter Bib Gayle who is an RN in the [employer]
if a/c is really necessary going forward would give it a week before restarting and monitor stool/hgb
# Pancreatic cyst -MRI ordered -
I spoke to Bib patient's daughter. She would like to proceed with the MRI to understand what they are dealing with. Bib said she would go with her to MRI to help with less confusion.
it may be tough to get her to lay flat in a machine for 30minutes. Also, may want to consider what would you do with the results? Most likely we are going to find a good sized lesion. this would lead to procedures like EUS/FNA of the lesion. Not
sure if you guys would want surgery if it was offered. Either way, nothing wrong with getting the MRI and then making a decision. - family would like to proceed with imaging for now
Subjective
Subjective
Date of Service: September 26, 2024
patient has no complaints. No further GIB. Had a brown BM today
Objective
Data Reviewed
Laboratory Data:
Laboratory Results
09/26/24 07:01
09/24/24 10:34
Laboratory Results
PT 17.7 Sec (11.4-14.6) H 09/26/24 07:01
INR 1.43 D 09/26/24 07:01
APTT 54.1 Sec (23.4-35.0) H 09/23/24 18:35
Total Bilirubin 0.9 mg/dl (0.2-1.3) 09/23/24 18:35
AST 23 U/L (14-36) 09/23/24 18:35
ALT 15 U/L (0-35) 09/23/24 18:35
Alkaline Phosphatase 58 U/L (38-126) 09/23/24 18:35
Vital Signs and I&O:
Vital Signs
Temp Pulse Resp BP Pulse Ox
97.6 F 78 18 144/71 99
09/26/24 11:00 09/26/24 11:00 09/26/24 11:00 09/26/24 11:00 09/26/24 11:00
I&O
09/25/24 09/26/24 09/27/24
06:59 06:59 06:59
Intake Total 1200 / 1200 2480 / 2480
Output Total 200 / 200
Balance 1200 / 1200 2280 / 2280
Physical Exam
Physical Exam
HEENT: Anicteric
GI: Soft, Non Distended and Non Tender
Extremities: No Edema
Neuro: Other (confused at nursing station)
--- NOTE | 2024-09-26 14:29 | CM ---
CM reviewed chart, placed call to [facility], spoke with patients nurse, Nataliia. Patient resides in [facility], does not need PT/OT evals in order for return, requesting clinicals faxed to [phone]. CM will continue to follow for all
discharge planning needs.
Plan; return to [facility] with [facility]
[phone]
[2024-09-26] MEDS: ATIVAN 0.5 MG IV (14:43)
[2024-09-26 23:41] VITALS: BP 137/68
[2024-09-27 07:11] VITALS: BP 146/95
--- NOTE | 2024-09-27 08:58 | W.PN.HOSP.TC ---
Today's Communication/Plan
-
Await MRI
Assessment / Plan
Assessment / Plan
78y F with PMH significant for dementia, hypertension and A-Fib on Coumadin who presents to ED for evaluation of BRBPR.
Physical exam:
Gen: NAD, Awake and alert
Eyes: EOMI, PERRLA, no scleral icterus.
Neck: supple.
CV: irreg/irreg, +S1/S2, no m/r/g.
Resp: CTAB anteriorly, no rales, wheezes, or rhonchi.
Abd: continues to remain +BS, soft, NT, ND
Skin: No rashes.
Neuro: CN 2-12 intact, non-focal.
Psych: calm
CT A/P: Evaluation for active colonic bleeding markedly limited without angiographic technique. Evaluation of the intestinal tract markedly limited without oral contrast and with relative paucity of intra-abdominal/pelvic fat with diverticulosis of
descending and redundant sigmoid colon. No intestinal obstruction or free air. Suspected 3 cm cystic lesion of the body/tail of the pancreas, additional approximate 1.2 cm pancreatic body cystic lesion and adjacent subcentimeter solid pancreatic
body lesion versus peripancreatic lymph node. Cystic lesions could represent PNET lesions. OTHER MALIGNANCY CANNOT BE EXCLUDED. RECOMMEND elective MRI for more complete evaluation if not recently obtained at outside facility. Prior cholecystectomy.
Cardiomegaly, heart incompletely included on this study.
Acute Blood Loss Anemia due to acute LGIB, likely diverticular:
-exacerbated by Coumadin coagulopathy, now resolved s/p 2.5mg Vit K (INR 1.43)
-s/p 1U pRBCs
-GI following
-trend Hb/INR
-cont IVFs
-advanced diet
GI recommended to start AC in one week
Pancreatic lesions:
-MRI abd w/contrast ordered by myself, cancelled by Dr. Whitlock. As per my discussion with the pt's daughter 09/25/24 she will want MRI done to investigate pancreatic lesions prior to discharge.
-
Other problems:
Paroxysmal Atrial Fibrillation: cont Dig/Coreg. Coumadin on hold with GIB.
Essential Hypertension: cont Coreg/Valsartan
Hyperthyroidism: cont methimazole
Alzheimer's Dementia
FULL/SCDs
Total time spent to see the patient, examine the patient, review data and lab result, discuss treatment plan with patient, nursing staff around 55 minutes
Anticipated Discharge: 24 - 48 hours
Subjective/Interval History
-
Date of Service: September 27, 2024
No chest pain
No sob
Objective Data
-
Labs:
Laboratory Results
09/27/24
06:00
WBC Pending
Hgb Pending
Hct Pending
Plt Count Pending
PT Pending
INR Pending
Sodium Pending
Potassium Pending
Chloride Pending
Carbon Dioxide Pending
BUN Pending
Creatinine Pending
Glucose Pending
Calcium Pending
Vital Signs:
Vital Signs
Temp Pulse Resp BP Pulse Ox
98.3 F 88 18 146/95 98
09/27/24 07:11 09/27/24 07:11 09/27/24 07:11 09/27/24 07:11 09/27/24 07:11
I&O
09/26/24 09/27/24 09/28/24
06:59 06:59 06:59
Intake Total 2480 / 2480 240 / 240
Output Total 200 / 200
Balance 2280 / 2280 240 / 240
[2024-09-27] MEDS: LANOXIN 125 MCG PO (09:04)
[2024-09-27] MEDS: TYLENOL 500 MG PO ×2 (09:04→21:09)
[2024-09-27] MEDS: BUSPAR 10 MG PO ×3 (09:05→21:10)
[2024-09-27] MEDS: PROTONIX IV 40 MG IV (09:05)
[2024-09-27] MEDS: COREG 6.25 MG PO ×2 (09:05→21:14)
[2024-09-27] MEDS: DIOVAN 160 MG PO (09:05)
[2024-09-27] MEDS: NSS (PRESERVATIVE FREE) 10 ML IV (09:06)
[2024-09-27 09:52] LABS: Hemoglobin 10.4 g/dL (12.0-16.0); Mean Corp Hgb Conc. 33.5 g/dL (33.0-37.0); Mean Corpuscular Hgb 30.4 pg (27.0-31.0); Mean Corpuscular Volume 90.6 fL (81.0-99.0); Mean Platelet Volume 11.3 fL (7.4-10.4); Platelet Count 215 10^3/uL (130-400); Red Blood Cell Count 3.42 10^6/uL (4.20-5.40); Red Cell Dist. Width 15.9 % (11.5-14.5); White Blood Cell Count 6.5 10^3/uL (4.8-10.8)
[2024-09-27 10:03] LABS: INR 1.19; PT 15.4 Sec (11.4-14.6)
[2024-09-27 10:21] LABS: Blood Urea Nitrogen 11 mg/dl (7-17); Calcium 8.8 mg/dl (8.4-10.2); Carbon Dioxide 30 mmol/L (22-30); Chloride 104 mmol/L (98-107); Estimated Creatinine Clearance 53 ml/min; Glucose 99 mg/dl (70-99); Sodium 139 mmol/L (135-145); eGFR > 60.00
--- NOTE | 2024-09-27 12:46 | W.PN.GI.CBS2 ---
Addendum entered and electronically signed by Jaime Kuo MD 09/27/24 14:46:
I saw and examined the patient.
The [employer]'s note was reviewed and I agree with the note.
No complaints. Hb stable.
plan
Follow-up MRI abdomen
monitor H/H
ok to advance diet
Medical team to consider benefits versus risks of restarting anticoagulation.
Original Note:
Today's Communication / Plan
-
stools now brown/black hbg stable 10.4 only 1 unit transfused during admission
await MRI to follow up pancreatic cyst
Dr. Whitlock as reviewed with her daughter Bib Gayle who is an RN in the [employer] and agreeable to proceed with MRI next
if a/c is really necessary going forward would give it a week before restarting and monitor stool/hgb
Assessment / Plan
-
Aida Em is a 78-year-old female with history of atrial fibrillation and a mitral valve ring on warfarin with a supratherapeutic INR of 4.5 who comes in with painless hematochezia with drop in hgb from normal to 7.2, required 1 unit PRBC's since
admission for suspected diverticular bleed who has been hemodynamically stable. Now noted with some dark stools. Incidentally noted with pancreatic cyst on Ct on admission.
Her last colonoscopy was outside of [place] roughly 5 years ago per her daughter and has had small polyps removed in the past and an episode of diverticulitis years ago.
-painless rectal bleeding with concern for diverticular bleed
-supratherapeutic INR on admission withhx mech ring
-pancreatic cyst - 3 cm cystic lesion in body/tail of pancreas, and 1.2 cm panc body cyst with adjacent sub CM solid lesion vs node- PNET vs other
-prior jody
-CM
-afib on warfarin prior to admission
PLAN:
stools now brown/black hbg stable 10.4 only 1 unit transfused during admission
await MRI to follow up pancreatic cyst
Dr. Whitlock as reviewed with her daughter Bib Gayle who is an RN in the [employer] and agreeable to proceed with MRI next
if a/c is really necessary going forward would give it a week before restarting and monitor stool/hgb
Subjective
Subjective
Date of Service: September 27, 2024
5/6 brown/black stool today per staff --on full liquid diet no complaints
Objective
Data Reviewed
Laboratory Data:
Laboratory Results
09/27/24 09:17
09/27/24 09:17
Laboratory Results
PT 15.4 Sec (11.4-14.6) H 09/27/24 09:17
INR 1.19 09/27/24 09:17
APTT 54.1 Sec (23.4-35.0) H 09/23/24 18:35
Total Bilirubin 0.9 mg/dl (0.2-1.3) 09/23/24 18:35
AST 23 U/L (14-36) 09/23/24 18:35
ALT 15 U/L (0-35) 09/23/24 18:35
Alkaline Phosphatase 58 U/L (38-126) 09/23/24 18:35
Vital Signs and I&O:
Vital Signs
Temp Pulse Resp BP Pulse Ox
98.3 F 88 18 146/95 98
09/27/24 07:11 09/27/24 09:05 09/27/24 07:11 09/27/24 09:05 09/27/24 07:11
I&O
09/26/24 09/27/24 09/28/24
06:59 06:59 06:59
Intake Total 2480 / 2480 240 / 240
Output Total 200 / 200
Balance 2280 / 2280 240 / 240
Physical Exam
Physical Exam
HEENT: Anicteric and Moist mucous membranes
Cardiology: Normal Sinus Rhythm
Pulmonary: Clear
GI: Soft, Non Distended and Non Tender
Extremities: No Edema
Neuro: Other (forgetful)
--- NOTE | 2024-09-27 15:19 | CM ---
CM reviewed chart, GI following. Plan remains return to [facility] with Teri HIDALGO when stable. Please contact [facility] prior to discharge, nurse Nataliia [phone].
Plan; return to [facility] with Teri HIDALGO
[facility]
[2024-09-27 15:34] VITALS: BP 129/79
[2024-09-27 22:59] VITALS: BP 105/59
[2024-09-28 07:12] VITALS: BP 143/85
[2024-09-28 07:17] LABS: Hematocrit 29.8 % (37.0-47.0); Mean Corp Hgb Conc. 33.6 g/dL (33.0-37.0); Mean Corpuscular Hgb 30.5 pg (27.0-31.0); Mean Corpuscular Volume 90.9 fL (81.0-99.0); Mean Platelet Volume 11.2 fL (7.4-10.4); Platelet Count 219 10^3/uL (130-400); Red Blood Cell Count 3.28 10^6/uL (4.20-5.40); Red Cell Dist. Width 15.8 % (11.5-14.5); White Blood Cell Count 5.9 10^3/uL (4.8-10.8)
[2024-09-28] MEDS: BUSPAR 10 MG PO ×3 (09:17→22:02)
[2024-09-28] MEDS: LANOXIN 125 MCG PO (09:18)
[2024-09-28] MEDS: TAPAZOLE 5 MG PO (09:19)
[2024-09-28] MEDS: DIOVAN 160 MG PO (09:19)
[2024-09-28] MEDS: COREG 6.25 MG PO ×2 (09:22→20:04)
[2024-09-28] MEDS: PROTONIX IV 40 MG IV (09:22)
[2024-09-28] MEDS: NSS (PRESERVATIVE FREE) 10 ML IV (09:23)
[2024-09-28] MEDS: FLUSH (NSS) 1 FLUSH IV (09:24)
[2024-09-28] MEDS: TYLENOL 500 MG PO ×2 (09:31→20:04)
--- NOTE | 2024-09-28 13:32 | W.PN.HOSP.TC ---
Today's Communication/Plan
-
waiting for MRI
d/c planning
Assessment / Plan
Assessment / Plan
pt is a 78 year old female
Acute Blood Loss Anemia due to acute LGIB, likely diverticular--exacerbated by Coumadin coagulopathy, now resolved s/p 2.5mg Vit K (INR 1.43)--s/p 1 unit pRBC--apprec GI--advancing diet--restart anticoagulation in 1 week
Pancreatic lesions--MRI abd w/contrast pending daughter wants MRI done to investigate pancreatic lesions prior to discharge.
Paroxysmal Atrial Fibrillation-- cont Dig/Coreg. Coumadin on hold with GIB.
Essential Hypertension-- cont Coreg/Valsartan
Hyperthyroidism-- cont methimazole
Alzheimer's Dementia
code status--full code
Anticipated Discharge: 24 - 48 hours
Subjective/Interval History
-
Date of Service: September 28, 2024
pt with apparent dementia--very confused on evaluation
Objective Data
-
Labs:
Laboratory Results
09/28/24
06:56
WBC 5.9
Hgb 10.0 L
Hct 29.8 L
Plt Count 219
Vital Signs:
max temp for 24 hours
09/28/24
07:12
Temp 98.2 F
Vital Signs
Temp Pulse Resp BP Pulse Ox
98.2 F 85 18 143/85 97
09/28/24 07:12 09/28/24 07:12 09/28/24 07:12 09/28/24 07:12 09/28/24 07:12
I&O
09/27/24 09/28/24 09/29/24
06:59 06:59 06:59
Intake Total 240 / 240 480 / 480
Balance 240 / 240 480 / 480
Review of Systems
-
Unable to obtain full review of systems at this time due to: Dementia
Physical Exam
-
General: Well Developed, Well Nourished and No Apparent Distress
HEENT: Normocephalic and Atraumatic
Respiratory: Clear to Auscultation; Negative Wheezes or Rhonchi
Cardiac: Irregular Rhythm and Gallop
GI: Soft, Nontender, Nondistended and Normal Bowel Sounds
Musculoskeletal: No Clubbing, No Cyanosis and No Edema
Psych: Apparent Dementia
[2024-09-28 15:16] VITALS: BP 159/85
[2024-09-28 23:23] VITALS: BP 127/81
[2024-09-29] MEDS: BUSPAR 10 MG PO (09:30)
[2024-09-29] MEDS: PROTONIX IV 40 MG IV (09:31)
[2024-09-29] MEDS: NSS (PRESERVATIVE FREE) 10 ML IV (09:31)
[2024-09-29] MEDS: COREG 6.25 MG PO (09:31)
[2024-09-29] MEDS: TYLENOL 500 MG PO (09:31)
[2024-09-29] MEDS: LANOXIN 125 MCG PO (09:31)
[2024-09-29] MEDS: DIOVAN 160 MG PO (09:31)
[2024-09-29 09:32] VITALS: BP 143/78
[2024-09-29 10:33] LABS: Blood Urea Nitrogen 13 mg/dl (7-17); Calcium 8.9 mg/dl (8.4-10.2); Carbon Dioxide 30 mmol/L (22-30); Chloride 102 mmol/L (98-107); Estimated Creatinine Clearance 53 ml/min; Glucose 90 mg/dl (70-99); Magnesium 2.1 mg/dl (1.6-2.3); Potassium 3.6 mmol/L (3.5-5.1); Sodium 139 mmol/L (135-145); eGFR > 60.00
[2024-09-29 10:36] LABS: Hematocrit 31.6 % (37.0-47.0); Hemoglobin 10.6 g/dL (12.0-16.0); Mean Corp Hgb Conc. 33.5 g/dL (33.0-37.0); Mean Corpuscular Hgb 30.5 pg (27.0-31.0); Mean Corpuscular Volume 90.8 fL (81.0-99.0); Mean Platelet Volume 10.9 fL (7.4-10.4); Platelet Count 269 10^3/uL (130-400); Red Blood Cell Count 3.48 10^6/uL (4.20-5.40); Red Cell Dist. Width 15.8 % (11.5-14.5); White Blood Cell Count 7.8 10^3/uL (4.8-10.8)
--- NOTE | 2024-09-29 12:49 | W.PN.HOSP.TC ---
Today's Communication/Plan
-
d/c
Assessment / Plan
Assessment / Plan
pt is a 78 year old female
Acute Blood Loss Anemia due to acute LGIB, likely diverticular--exacerbated by Coumadin coagulopathy, now resolved s/p 2.5mg Vit K (INR 1.43)--s/p 1 unit pRBC--apprec GI--advancing diet--restart anticoagulation in 1 week
Pancreatic lesions--MRI abd w/contrast consistent with cysts
Paroxysmal Atrial Fibrillation-- cont Dig/Coreg. Coumadin on hold with GIB--restart on Thursday
Essential Hypertension-- cont Coreg/Valsartan
Hyperthyroidism-- cont methimazole
Alzheimer's Dementia
code status--full code
Anticipated Discharge: Today
Subjective/Interval History
-
Date of Service: September 29, 2024
pt just got out of shower with her daughter's help
Objective Data
-
Labs:
Laboratory Results
09/29/24
09:50
WBC 7.8
Hgb 10.6 L
Hct 31.6 L
Plt Count 269 D
Sodium 139
Potassium 3.6
Chloride 102
Carbon Dioxide 30
BUN 13
Creatinine 0.7
Glucose 90
Calcium 8.9
Vital Signs:
max temp for 24 hours
09/28/24
07:12
Temp 98.2 F
Vital Signs
Temp Pulse Resp BP Pulse Ox
97.6 F 84 16 143/78 97
09/29/24 09:32 09/29/24 09:32 09/29/24 09:32 09/29/24 09:32 09/29/24 09:32
I&O
09/28/24 09/29/24 09/30/24
06:59 06:59 06:59
Intake Total 480 / 480 480 / 480
Balance 480 / 480 480 / 480
Review of Systems
-
All other systems: Reviewed and negative
Physical Exam
-
General: Well Developed, Well Nourished and No Apparent Distress
HEENT: Normocephalic and Atraumatic
Respiratory: Clear to Auscultation; Negative Wheezes or Rhonchi
Cardiac: Irregular Rhythm; Negative Murmur
GI: Soft, Nontender, Nondistended and Normal Bowel Sounds
Musculoskeletal: No Clubbing, No Cyanosis and No Edema
Neuro: Awake
--- NOTE | 2024-09-29 13:04 | CM ---
CM reviewed chart, patient for discharge today. SUSANA spoke with patients nurse, Nataliia, from [facility], updated clinicals faxed to [phone]. SUSANA spoke with Preston from [facility], discussed discharge for today- updated clinicals placed in
[facility]. Patient and daughter seen bedside, IMM reviewed, signed, placed in chart, daughter provided with copy. Daughter reports she will provide transport to facility. Please contact [facility] prior to discharge, nurse Nataliia [phone].
Plan; return to [facility] with Teri
[facility]
Report to Nataliia: [phone]
[facility]
[2024-09-29 13:25] VITALS: BP 117/74
--- NOTE | 2024-09-29 14:03 | W.DCSUMMARY ---
Discharge Summary
Discharge Data
Date of Admission: 09/23/24
Date of Discharge: 09/29/24
-
Pending Results: No
Hospital Course
Primary care physician : Eli Miranda
Principal Discharge diagnosis : Acute blood loss anemia due to acute lower GI bleed
Chronic Discharge diagnosis : Pancreatic lesions, paroxysmal atrial fibrillation, essential hypertension, hypothyroidism, Alzheimer's dementia
Hospital Course : Patient was a 78-year-old female with with a history of dementia whose history was obtained for the patient's daughter. Patient noted blood in the stool earlier on the day of admission and notified staff at the personal care
facility. She was transported for further evaluation. While in the ED she had a maroon-colored bowel movement and stool tested heme positive. She denied abdominal distention, pain, bloating, nausea, vomiting, fevers, chills. Patient has a known
history of diverticular disease. Patient was admitted.
Problem #1: Acute blood loss anemia due to acute lower GI bleed. This was likely exacerbated by her Coumadin use. Coumadin was held on admission. She was given 1 unit of packed red blood cells and did receive 2.5 mg of vitamin K. This is likely
diverticular bleed which has stopped. GI was consulted and did not feel the need for any invasive studies. Patient should be restarted on her Coumadin tomorrow September 30, 2024 after holding for 1 week. If patient were to bleed again, risk versus
benefit ratio needs to be discussed regarding restarting anticoagulation. Hemoglobin on admission was 7.2. On the day of discharge she was 10.6.
Problem #2: All other medical issues. These include Pancreatic lesions, paroxysmal atrial fibrillation, essential hypertension, hypothyroidism, Alzheimer's dementia. These issues were stable during her hospitalization. Medications were continued
as able. In regards to her pancreatic lesions. Patient had an MRI of the abdomen. Lesions appear to be cystic in nature. Of course, they cannot rule out mucinous neoplasms but I did speak with the patient's daughter regarding whether or not this
should be worked up if the patient has significant dementia.
Patient is stable for discharge back to her facility at this time. If there are any questions regarding this dictation or her hospital stay, please not hesitate to call. Our office number is [phone].
Time for discharge 31 minutes.
Important imaging findings :
MRI ABDOMEN IMPRESSION:
Multiple pancreatic cysts, as described. No associated nodularity or enhancement. No main pancreatic duct dilatation.
Possible considerations include inflammatory/pseudocysts, serous cystadenoma of the pancreas, or intraductal papillary mucinous neoplasms.
Discharge Plan
-
Patient Disposition: Assisted Living
Discharge Diagnosis/Procedures: acute blood loss anemia due to lower GI bleed, pancreatic lesions, paroxysmal atrial fibrillation, essential hypertension, dementia
Condition: Good
Diet: Regular
Activity: As tolerated
Driving Restrictions: No driving
Bathing Restrictions: None
Blood Work: pt/INR Thursday--results to whomever manages coumadin
Other Services: VN, PT and OT
Referrals:
Eli Miranda, DO [Family Provider] - in less than 1 week
Prescriptions:
Continued
acetaminophen 500 mg Tablet
500 mg PO BID
methimazole 5 mg Tablet
5 mg PO MOWEFR
digoxin 125 mcg (0.125 mg) Tablet
125 mcg PO DAILY
calcium carbonate-vitamin D3 [Calcium 600 + D(3)] 600 mg-10 mcg (400 unit) Tablet
1 tab PO BID
buspirone 5 mg Tablet
10 mg PO TID
aspirin 81 mg Tablet,Chewable
81 mg PO DAILY
meclizine 12.5 mg Tablet
12.5 mg PO Q8HPRN PRN (Reason: vertigo) 60 Days Qty: 60 0RF
carvedilol [Coreg] 6.25 mg tablet
6.25 mg PO BID Qty: 180 0RF
valsartan 160 mg Tablet
160 mg PO DAILY Qty: 0 0RF
Held
warfarin 4 mg Tablet
4 mg PO DAILY@1700
Hold Instructions: RESTART on Saturday 09/30
Discontinued
valsartan 80 mg Tablet
80 mg PO DAILY
Discharge Orders:
Discharge Patient (As Directed); Ordered 09/29/24
Ordered By: Aida Mccann
Discharge Date and Time
Discharge Date/Time: 09/29/24 13:42
Print Language: SERBIAN
== END 2024-09-29 13:42 | disposition home or self-care (01) | DRG 378 ==
LOC: 4 WEST ACU 23:38
PROVIDERS: Internal Medicine; Nurse Practitioner Adult Health; Student in an Organized Health Care Education/Training Program; ADMITTING PHYSICIAN Hospitalist; ATTENDING PHYSICIAN Internal Medicine; CONSULT PHYSICIAN Internal Medicine; EMERGENCY PHYSICIAN Emergency Medicine; FAMILY PHYSICIAN Family Medicine
PROC: 30233N1 Transfusion of Nonautologous Red Blood Cells into Peripheral Vein, Percutaneous Approach (ICD-10-PCS; 2024-09-25)
DX: K57.93 Diverticulitis of intestine, part unspecified, without perforation or abscess with bleeding (principal); D62 Acute posthemorrhagic anemia; D68.32 Hemorrhagic disorder due to extrinsic circulating anticoagulants; F02.84 Dementia in other diseases classified elsewhere, unspecified severity, with anxiety; K86.2 Cyst of pancreas; Z79.01 Long term (current) use of anticoagulants; I48.0 Paroxysmal atrial fibrillation; I10 Essential (primary) hypertension; E05.90 Thyrotoxicosis, unspecified without thyrotoxic crisis or storm; E03.9 Hypothyroidism, unspecified; G30.9 Alzheimer's disease, unspecified; Z79.82 Long term (current) use of aspirin
CPT/HCPCS: 74177; 74183; 80048; 80053; 83735; 85014; 85018; 85025; 85027; 85610; 85730; 86850; 86900; 86901; 86920; 87070; 93005; 96374; 99285; A9575; P9016; Q9967